=== PATIENT | female | born 1965 | race Caucasian/White ===

== ENCOUNTER 2016-03-19 06:07 | Emergency (ER) | payer BC ==
[~2016-03-19] VITALS: Ht 177.8 cm; Wt 54.4 kg
--- NOTE | ~2016-03-19 | EKG ---
[facility] [place] [address] [place] [address] ELECTROCARDIOGRAM REPORT Name: TANA MCCAIN Room #: REG MARIO Mae#: [id number] Admission: 03/19/16 Attend Phys: Discharge: Date of : 67 Report #: [id number] THIS REPORT FOR: //name// [facility] ED Test Date: 2016-03-19 Test Time: 06:17:23 Pat Name: TANA MCCAIN Department: Room: Gender: F Research Chemist: MARTINEZ : 1965 Requested By: Debby Manuel Order Number: [id number] MD: Demian Real Measurements Intervals Olga Rate: 94 P: 72 NC: 136 QRS: 85 QRSD: 96 T: 52 QT: 355 QTc: 444 Interpretive Statements Sinus rhythm RSR' in V1 or V2, probably normal variant No previous ECG available for comparison Electronically Signed On 03-19-2016 7:50:37 TRANSPORTATION ANALYST by Demian Real [email or web address] <ELECTRONICALLY SIGNED> By: Demian Real MD, [facility] 03/19/16 0750 [id number] 06 Demian Real MD, FACC /EPI
[2016-03-19 06:22] LABS: ABSOLUTE NEUTROPHILS 6.5 thou/uL (1.4-8.2); BASOPHILS 0.7 % (0.0-2.0); EOSINOPHILS 0.3 % (0.0-3.0); HEMATOCRIT 39.1 % (37.0-47.0); LYMPHOCYTES 21.3 % (24.0-44.0); MCH 27.8 pg (26.0-34.0); MCHC 33.2 % (28.0-37.0); MCV 83.8 fL (80.0-100.0); MONOCYTES 11.3 % (1.0-8.0); PLATELET COUNT 331 thou/uL (150-400); POLYS 66.4 % (36.0-66.0); RBC 4.67 mil/uL (4.20-5.00); RDW 13.1 % (10.5-14.5); WBC 9.7 thou/uL (4.0-11.0)
[2016-03-19 06:25] LABS: MANUAL DIFF NO
[2016-03-19 06:33] LABS: ANION GAP 10 mmol/L (7-16); BUN 14 mg/dL (7-18); CALCIUM 9.2 mg/dL (8.5-10.1); CHLORIDE 101 mmol/L (98-107); CO2 27 mmol/L (21-32); CREATININE 0.8 mg/dL (0.6-1.3); GLUCOSE 113 mg/dL (70-99); SODIUM 138 mmol/L (136-145)
[2016-03-19 06:47] LABS: TROPONIN-I < 0.04 ng/mL (<0.04-0.07)
[2016-03-19 06:50] LABS: URINE BILIRUBIN NEGATIVE (Negative); URINE BLOOD 2+ (Negative); URINE COLOR YELLOW; URINE GLUCOSE-RANDOM* NEGATIVE (Negative); URINE KETONES NEGATIVE (Negative); URINE NITRITE NEGATIVE (Negative); URINE PROTEIN (DIPSTICK) NEGATIVE (Negative); URINE SPECIFIC GRAVITY <= 1.005 (1.003-1.035); URINE UROBILINOGEN 0.2 E.U./dl (0.2-1.0)
[2016-03-19 07:10] LABS: BACTERIA None Seen /HPF (None Seen); SQUAMOUS 0-3 Few /LPF (0-3); URINE RBC 0-2 Rare /HPF (0-2); URINE WBC None Seen /HPF (0-5)
[2016-03-19 07:11] LABS: CASTS None Seen /LPF (None Seen); CRYSTALS None Seen /LPF (None Seen)
[2016-03-19] MEDS ORDERED: NORCO 5-325 TA1 EACH PO (07:51)
[2016-03-19] MEDS ORDERED: LEVAQUIN 500 M500 M1 PO (07:51)
[2016-03-19 08:10] VITALS: BP 100/57
== END 2016-03-19 08:11 | disposition home or self-care (01) ==
LOC: ER 06:07
PROVIDERS: Emergency Medicine
DX: J18.9 Pneumonia, unspecified organism (principal); Z88.0 Allergy status to penicillin; Z88.8 Allergy status to other drugs, medicaments and biological substances